=== PATIENT | male | born 1965 | race Caucasian/White ===

== ENCOUNTER 2020-05-18 10:40 | Emergency (ER) | payer BC ==
[~2020-05-18 10:40] MED LIST: LODINE CAP 300300 MG PO; ROBITUSSIN AC480 ML PO; VIBRAMYCIN100 MG PO; ZOVIRAX 800 MG800 MG PO
[2020-05-18 13:27] LABS: HEMOGLOBIN 14.3 gm/dl (14.0-17.5); RED BLOOD COUNT 4.68 M/UL (4.20-5.50); WHITE BLOOD COUNT 4.6 K/UL (4.5-11.0)
[2020-05-18 13:47] LABS: BUN/CREATININE RATIO 12 (0-10)
== END 2020-05-18 16:35 | disposition home or self-care (01) ==
LOC: ER1 10:40
PROVIDERS: Family Medicine
DX: U07.1 COVID-19 (principal); E66.01 Morbid (severe) obesity due to excess calories; I10 Essential (primary) hypertension
CPT/HCPCS: 71045; 80053; 85025; 99284; M0239

== ENCOUNTER 2020-11-14 17:19 | Emergency (ER) | payer BC ==
[2020-11-14 19:13] LABS: HEMOGLOBIN 14.1 gm/dl (14.0-17.5); RED BLOOD COUNT 4.9 M/UL (4.20-5.50); WHITE BLOOD COUNT 9.4 K/UL (4.5-11.0)
[2020-11-14 19:41] LABS: BUN/CREATININE RATIO 18 (0-10)
== END 2020-11-14 20:10 | disposition home or self-care (01) ==
LOC: ER1 17:19
PROVIDERS: Emergency Medicine
DX: T18.128A Food in esophagus causing other injury, initial encounter (principal); I10 Essential (primary) hypertension; Z20.822 Contact with and (suspected) exposure to COVID-19
CPT/HCPCS: 0240U; 71045; 80053; 82550; 82553; 83690; 83735; 83874; 84484; 85025; 93005; 96374; 96375; 99285; J1610; J2405